=== PATIENT | male | born 1945 | race Caucasian/White ===

== ENCOUNTER 2017-11-10 10:57 | Emergency (ER) | payer MEDICARE, OTHER ==
[2017-11-10 11:07] VITALS: BP 128/91
--- NOTE | 2017-11-10 11:11 | ERNOTE ---
ENT HPI Date of Service: 11/10/17 Presenting Symptoms: other - c/o sore throat for 2-3 days Time Seen by Provider: 11/10/17 11:04 Source: patient Exam Limitations: no limitations - Immun/Allergies/Home Medications Immunizations: IMMUNIZATION HX History of Influenza Vaccine No Hx Pneumococcal Vaccination No Allergies/Adverse Reactions: Allergies Allergy/AdvReac Type Severity Reaction Status Date / Time No Known Allergies Allergy Verified 11/10/17 11:10 Home Medications: HOME MEDICATIONS Amoxicillin Trihydrate [Amoxil] 500 mg PO TID #30 11/10/17 [Last Taken Unknown] Aspirin [Aspirin Enteric Coated] 81 mg PO DAILY 11/10/17 [Last Taken Unknown] Lisinopril [Zestril] 20 mg PO DAILY 11/10/17 [Last Taken Unknown] - History of Present Illness Narrative: c/o sore throat for 2-3 days with mild cough Severity: Present: moderate ENT Location: Present: throat Prearrival Treatment: Present: no prearrival treatment Modifying Factors - Improves: Reports: rest Modifying Factors - Worsens: Reports: activity Associated Symptoms - ENT: Reports: fever, malaise, nasal congestion/drainage Review of Systems - Narrative Narrative: unremarkable - Review of Systems Constitutional: Present: See HPI, weakness, fatigue, malaise EYE: Present: no symptoms reported ENT: Present: sore throat Respiratory: Present: cough Cardiology: Present: no symptoms reported Gastrointestinal/Abdominal: Present: no symptoms reported Genitourinary: Present: no symptoms reported Musculoskeletal: Present: muscle pain, muscle stiffness Skin: Present: no symptoms reported Neurological: Present: no symptoms reported Endocrine: Present: no symptoms reported - Narrative Narrative: unremarkable - Patient's Past Medical History Patient History - Medical: No pertinent hx Patient History - Cardiac/Respiratory: Hypertension, Hyperlipidemia Patient History - Cancer: No Hx of Cancer Patient History - Surgical Procedures: No surgical history Patient History - Other: None - Family History Family History:: no untoward family reactions to anesthesia, no familial bleeding tendencies, no family history of clotting disorders, no family history of premature - Social History Living Situations: home Abuse History: No History of abuse Psych History: No pertinent hx Does anyone smoke in the home?: No Smoking Status: Former smoker Have you smoked in the past 12 months: No Do you dip or chew tobacco: No Patient requests Smoking Cessation Consult: No Initiate information on Smoking Cessation: No Alcohol Use: none Drug Use: none - Immunizations Hx Pneumococcal Vaccination: No History of Influenza Vaccine: No Physical Exam - Physical Exam General Appearance: Present: mild distress, anxious Head Exam: Present: normal inspection, no evidence of injury Eye Exam: Normal inspection: bilateral, PERRL: bilateral, EOMI: bilateral Ears, Nose, Throat: Present: pharyngeal erythema, pharyngeal swelling, dry mucous membranes Neck: Present: normal inspection, nontender Respiratory: Present: no respiratory distress, normal breath sounds, no accessory muscle use, chest nontender, lungs clear Cardiovascular/Chest: Present: regular rate, rhythm, no murmur, normal peripheral pulses Peripheral Pulses: N=norm/S=strong/W=weak/B=bound/A=absent: Carotid (R): Normal , Carotid (L): Normal, Radial (R): Normal, Radial (L): Normal, Femoral (R): Normal, Femoral (L): Normal, Dorsalis-pedis (R): Normal, Dorsalis-pedis (L): Normal Gastrointestinal/Abdominal: Present: normal bowel sounds, nontender, nondistended, soft, no organomegaly Back Exam: Present: normal inspection, normal range of motion, no CVA tenderness , no vertebral tenderness Extremity Exam: Present: normal inspection, non-tender, normal range of motion, no edema Neurological Exam: Present: alert, oriented, normal mood/affect, no motor/ sensory deficits DTR: N=norm/NB=norm/brisk/A=abs/DD=dull/dimin/HC=hyperactive: Bicep (R): Normal , Bicep (L): Normal, Tricep (R): Normal, Tricep (L): Normal, Knee (R): Normal, Knee (L): Normal, Ankle (R): Normal, Ankle (L): Normal Skin Exam: Present: normal color, warm/dry ED Progress - Date and Time Seen: Date and Time: 11/10/17 11:27 condition unchanged - Results and Orders Patient's Lab Results:: I have reviewed the patient's lab results. - Vital Signs Patient's Vital Signs:: I have reviewed the patient's vital signs. Vital Signs: Vital Signs 11/10/17 11:02 Temperature 37.4 C Pulse Rate 98 Respiratory 12 Rate Blood Pressure 128/91 O2 Sat by Pulse 94 Oximetry - Progress/Reassessment Chief Complaint: Sore Throat Progress:: Unchanged - Transfer of Care Expected Disposition: Discharge Plan - Plan Plan: to be discharged Departure Clinical Impression: Pharyngitis - Departure Disposition: Home self-care Condition: Fair Instructions: Pharyngitis, [id number] Referrals: Suhail Bell MD [Primary Care Provider] - Prescriptions: Amoxicillin Trihydrate [Amoxil] 500 mg PO TID #30
== END 2017-11-10 11:34 | disposition home or self-care (01) ==
LOC: ER 10:57
DX: J02.9 Acute pharyngitis, unspecified (principal)